=== PATIENT | male | born 1980 | race Caucasian/White ===

== ENCOUNTER 2020-02-21 19:01 | Emergency (ER) | payer SELFPAY ==
[~2020-02-21] VITALS: Ht 180.3 cm; Wt 100.0 kg
[2020-02-21 19:04] VITALS: BP 129/69
== END 2020-02-21 19:31 | disposition home or self-care (01) ==
LOC: ER 19:01
DX: Z03.818 Encounter for observation for suspected exposure to other biological agents ruled out (principal); J06.9 Acute upper respiratory infection, unspecified
CPT/HCPCS: 99281